=== PATIENT | male | born 2000 | race Caucasian/White ===

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

== ENCOUNTER 2018-02-19 14:56 | Emergency (ER) | payer BC ==
[~2018-02-19] VITALS: Ht 185.4 cm; Wt 103.2 kg
[2018-02-19 14:59] VITALS: Ht 185.4 cm; Wt 103.2 kg
[2018-02-19] MEDS ORDERED: TORADOL10 MG PO (16:39)
[2018-02-19] MEDS ORDERED: ROBAXIN500 MG PO (16:39)
[2018-02-19 17:21] VITALS: BP 141/89
== END 2018-02-19 17:22 | disposition home or self-care (01) ==
LOC: D.ER 14:56
DX: S83.401A Sprain of unspecified collateral ligament of right knee, initial encounter (principal); W01.0XXA Fall on same level from slipping, tripping and stumbling without subsequent striking against object, initial encounter; Y93.89 Activity, other specified; Y92.019 Unspecified place in single-family (private) house as the place of occurrence of the external cause

== ENCOUNTER 2018-07-23 00:32 | Observation (INO) | payer BC ==
[2018-07-23] VITALS (11 sets, daily range): BP systolic 92–132; BP diastolic 36–74; Ht 185.4 cm; Wt 104.3 kg
[~2018-07-23] VITALS: Ht 185.4 cm; Wt 104.3 kg
[~2018-07-23 00:32] MED LIST: ROBAXIN500 MG PO; TORADOL10 MG PO
--- NOTE | 2018-07-23 01:20 | NUR ---
PATIENT SLEEPING, AWAKES TO VERBAL STIMULI. ADDITIONAL BLANKETS GIVEN. NO DISTRESS NOTED. WILL CONTINUE TO MONITOR.
--- NOTE | 2018-07-23 01:45 | NUR ---
FAMILY AT BEDSIDE. PATIENT SLEEPING ON HIS RIGHT SIDE. AWAKES TO VERBAL STIMULI. NO BLEEDING NOTED AT THIS TIME. FAMILY UPDATED ON PLAN OF CARE AND DELAYS IN CARE. WILL CONTINUE TO MONITOR.
--- NOTE | 2018-07-23 01:58 | NUR ---
PATIENT COLD AND SHIVERING. GIVEN MULTIPLE BLANKETS. SACREAL AREA COVERED WITH 4X4s AND SALINE PRIOR TO TRANSPORT TO CT.
[2018-07-23 02:06] LABS: HEMATOCRIT 39.2 % (42.0-54.0); HEMOGLOBIN 14.5 g/dL (13.5-17.5); MCV 83.8 fL (80.0-100.0); MEAN PLATELET VOLUME 9.9 fL (7.4-10.4); PLATELET COUNT 248 10x3/uL (130-400); RBC 4.68 10x6/uL (4.20-6.10); RDW 12.5 % (11.5-14.5); WBC 20.1 10x3/uL (4.8-10.8)
[2018-07-23 02:12] LABS: ALBUMIN 3.6 g/dL (3.4-5.0); ALKALINE PHOSPHATASE 71 U/L (46-116); ALT (SGPT) 30 U/L (10-68); BILIRUBIN - TOTAL 0.47 mg/dL (0.2-1.3); CALC OSMOLALITY 278 mosm/kg (275-300); CALCIUM 8.2 mg/dL (8.5-10.1); CARBON DIOXIDE 28.6 mmol/L (21.0-32.0); CHLORIDE - SERUM 105 mmol/L (98-107); GLUCOSE 107 mg/dL (74-106); POTASSIUM - SERUM 3.5 mmol/L (3.5-5.1); PROTEIN - SERUM 6.8 g/dL (6.4-8.2); SODIUM 140 mmol/L (136-145); UREA NITROGEN 13 mg/dL (7-18); eGFR NON AFRICAN AMERICAN > 90 mL/min (90-120)
--- NOTE | 2018-07-23 02:12 | NUR ---
PATIENT SLEEPING ON HIS RIGHT SIDE. RESPIRATIONS EVEN AND UNLABORED. COLOR WNL FOR RACE. FAMILY AT BEDSIDE. NO DISTRESS NOTED. ADDITIONAL BLANKETS GIVEN. WILL CONTINUE TO MONITOR.
[2018-07-23 02:21] LABS: LYMPHOCYTES 4 % (15-50); NEUTROPHILS 91 % (40-80); PLATELET ESTIMATE NORMAL
--- NOTE | 2018-07-23 02:50 | NUR ---
C-COLLAR REMOVED PER TAVO MEDINA
[2018-07-24 00:40] VITALS: BP 102/50
[2018-07-24 05:21] VITALS: BP 97/49
--- NOTE | 2018-07-24 05:52 | NUR ---
I have reviewed this patient and I concur with the Shift Assessment completed by the Licensed Practical Nurse today this shift.
[2018-07-24 07:22] LABS: BASOPHILS 0.1 % (0-2); EOSINOPHILS 0.3 % (0-7); HEMATOCRIT 37.5 % (42.0-54.0); HEMOGLOBIN 13.4 g/dL (13.5-17.5); IMMATURE GRANULOCYTES 0.3 % (0-5); LYMPHOCYTES 10.2 % (15-50); MCH 30.1 pg (26.0-34.0); MCHC 35.7 g/dL (31.0-37.0); MCV 84.3 fL (80.0-100.0); MEAN PLATELET VOLUME 10.6 fL (7.4-10.4); MONOCYTES 12.6 % (2-11); NEUTROPHILS 76.5 % (40-80); PLATELET COUNT 224 10x3/uL (130-400); RBC 4.45 10x6/uL (4.20-6.10); RDW 12.7 % (11.5-14.5)
[2018-07-24 07:27] LABS: WBC 14.5 10x3/uL (4.8-10.8)
[2018-07-24 07:53] LABS: ALBUMIN 3.1 g/dL (3.4-5.0); ALKALINE PHOSPHATASE 54 U/L (46-116); ALT (SGPT) 26 U/L (10-68); BILIRUBIN - TOTAL 0.65 mg/dL (0.2-1.3); CALC OSMOLALITY 272 mosm/kg (275-300); CALCIUM 8.2 mg/dL (8.5-10.1); CARBON DIOXIDE 25.8 mmol/L (21.0-32.0); CHLORIDE - SERUM 104 mmol/L (98-107); CREATININE - SERUM 0.9 mg/dL (0.6-1.3); GLUCOSE 117 mg/dL (74-106); POTASSIUM - SERUM 3.3 mmol/L (3.5-5.1); PROTEIN - SERUM 6.3 g/dL (6.4-8.2); SODIUM 137 mmol/L (136-145); eGFR NON AFRICAN AMERICAN > 90 mL/min (90-120)
[2018-07-24 07:55] LABS: UREA NITROGEN 7 mg/dL (7-18)
[2018-07-24 08:52] VITALS: BP 104/69
[2018-07-24 12:20] VITALS: BP 100/64
--- NOTE | 2018-07-24 14:23 | NUR ---
Pt admitted on 07/23/[address] rash covers from his back (at waist level) to bilateral buttocks. He also has abrasions on his right heel and left elbow. Cleansed areas with saline soaked 4x4 gauze to aide in removing skin. Instructed his parents as to how to clean it. After entire area was cleaned it was patted dry. Area was left open to air as per Dr. Urbano's request. Pt tolerated well.
--- NOTE | 2018-07-24 21:00 | NUR ---
PT RESTING WITH EYES CLOSED, EASILY ROUSED AND ALERT. SHIFT ASSESSMENT COMPLETED PER FLOW SHEET WITH NO ACUTE DISTRESS OBSERVED. CALL LIGHT IN REACH. FAMILY AT BEDSIDE
[2018-07-24 21:01] VITALS: BP 101/61
--- NOTE | 2018-07-25 03:47 | NUR ---
C/O PAIN BUTTOCKS ROAD RASH SITE RATES PAIN #8 NORCO 10/325MG TAB ONE PO FOR PAIN CONTROL. PARENTS IN ROOM. ICE BAG APPLIED TO BUTTOCKS AREA
[2018-07-25 05:41] VITALS: BP 118/67
[2018-07-25 05:45] LABS: BASOPHILS 0.2 % (0-2); HEMATOCRIT 36.6 % (42.0-54.0); IMMATURE GRANULOCYTES 0.3 % (0-5); LYMPHOCYTES 11.6 % (15-50); MCHC 35.5 g/dL (31.0-37.0); MCV 84.5 fL (80.0-100.0); MEAN PLATELET VOLUME 10.3 fL (7.4-10.4); MONOCYTES 10.6 % (2-11); NEUTROPHILS 76.3 % (40-80); PLATELET COUNT 226 10x3/uL (130-400); RBC 4.33 10x6/uL (4.20-6.10); RDW 12.5 % (11.5-14.5); WBC 12.6 10x3/uL (4.8-10.8)
[2018-07-25 06:08] LABS: ALKALINE PHOSPHATASE 50 U/L (46-116); ALT (SGPT) 26 U/L (10-68); BILIRUBIN - TOTAL 0.43 mg/dL (0.2-1.3); CALCIUM 8.5 mg/dL (8.5-10.1); CARBON DIOXIDE 27.5 mmol/L (21.0-32.0); CHLORIDE - SERUM 104 mmol/L (98-107); CREATININE - SERUM 0.9 mg/dL (0.6-1.3); GLUCOSE 124 mg/dL (74-106); PROTEIN - SERUM 6.3 g/dL (6.4-8.2); SODIUM 139 mmol/L (136-145); eGFR NON AFRICAN AMERICAN > 90 mL/min (90-120)
[2018-07-25 06:09] LABS: CALC OSMOLALITY 275 mosm/kg (275-300); POTASSIUM - SERUM 3.8 mmol/L (3.5-5.1); UREA NITROGEN 5 mg/dL (7-18)
--- NOTE | 2018-07-25 06:47 | NUR ---
TURNS SIDE TO SIDE WITH HELP FROM HIS DAD STATES PAIN PILL DID HELP
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
[2018-07-25 08:30] VITALS: BP 140/79
[2018-07-25] MEDS ORDERED: MUCINEX600 MG PO (09:30)
[2018-07-25] MEDS ORDERED: TESSALON PERLE100 MG PO (09:30)
[2018-07-25] MEDS ORDERED: GABAPENTIN100 MG PO (09:30)
[2018-07-25] MEDS ORDERED: HYDROCODON-ACE1 EA10 PO (09:31)
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
--- NOTE | 2018-07-26 10:23 | MORECARE ---
CASE MANAGEMENT DISCHARGE SUMMARY PATIENT: BHARATI SILVER UNIT: [id number] ADM DATE: 07/23/18 AGE: 18 : [birth year] SEX: M ROOM/BED: D.2233 AUTHOR: TARAS ARTIS PHYSICIAN: REFERRING PHYSICIAN: JENNIFER CHUNG MD DATE OF SERVICE: 07/26/18 Discharge Plan Patient Name: BHARATI SILVER [facility] : 2000 Planned Disposition: Anticipated Discharge Date: Discharge Date: 07/25/2018 Expected LOS: 0 Initial Reviewer: [email or web address] Initial Review Date: 07/26/2018 Generated: 07/26/18 11:23 am Patient Name: BHARATI SILVER Page [id number] at 1023 All edits/amendments must be made on the electronic document DICTATION DATE: 07/26/18 1022 GRANULATOR OPERATOR: ABISAI 07/26/18 1022 RPT#: [id number] DC DATE:07/25/18 STATUS: DIS IN [facility] [address] [place] [address] END OF REPORT
== END 2018-07-25 13:21 | disposition home or self-care (01) ==
LOC: D.ER 00:32 → D.MS 05:23 → OBSVTIME 05:23 → D.MS 07-25 13:21
PROVIDERS: Family Medicine; ADMIT Family Medicine; ATTEND Family Medicine
DX: S06.0X1A Concussion with loss of consciousness of 30 minutes or less, initial encounter (principal); R40.2363 Coma scale, best motor response, obeys commands, at hospital admission; R40.2133 Coma scale, eyes open, to sound, at hospital admission; R40.2253 Coma scale, best verbal response, oriented, at hospital admission; V20.0XXA Motorcycle driver injured in collision with pedestrian or animal in nontraffic accident, initial encounter; S00.03XA Contusion of scalp, initial encounter; S27.329A Contusion of lung, unspecified, initial encounter; S83.401A Sprain of unspecified collateral ligament of right knee, initial encounter